=== PATIENT | male | born 1985 | race Caucasian/White ===

== ENCOUNTER 2022-12-28 19:39 | Emergency (ER) | payer OTHER ==
[2022-12-28 19:54] VITALS: BP 136/87; PULSE 75; RESP 16; TEMP 98.6
--- NOTE | 2022-12-28 20:29 | ED ---
Skin/Abscess/FB HPI - General Chief complaint: Skin/Abscess/Foreign Body Stated complaint: redness on face Time Seen by Provider: 12/28/22 20:07 Source: patient Mode of arrival: ambulatory Limitations: no limitations - History of Present Illness Initial comments: 37-year-old male presenting with chief complaint of rash to the face. Patient has had a red and crusting rash on the right side of the chin ongoing for 3 days. He was seen at urgent care but he was not able to get the topical antibiotic prescribed him as he could not afford it. He is concerned about a rash in size. No fevers or chills. No chest pain, difficulty breathing, difficulty swallowing, nausea, vomiting. No URI like symptoms. - Related Data Previous Rx's Medication Instructions Recorded Cephalexin [Keflex] 500 mg PO Q6HR 10 Days #40 cap 12/28/22 Allergies Allergy/AdvReac Type Severity Reaction Status Date / Time No Known Allergies Allergy Verified 12/28/22 19:50 Review of Systems ROS Statement: Those systems with pertinent positive or pertinent negative responses have been documented in the HPI. ROS Other: All systems not noted in ROS Statement are negative. Past Medical History Past Medical History: No Reported History History of Any Multi-Drug Resistant Organisms: None Reported Additional Past Surgical History / Comment(s): tail bone , oral Past Psychological History: Bipolar Smoking Status: Never smoker Past Alcohol Use History: Rare Past Drug Use History: None Reported General Exam Limitations: no limitations General appearance: alert, in no apparent distress Head exam: Present: atraumatic, normocephalic, normal inspection Eye exam: Present: normal appearance, EOMI ENT exam: Present: normal oropharynx, mucous membranes moist Neck exam: Present: normal inspection, full ROM Respiratory exam: Present: normal lung sounds bilaterally. Absent: respiratory distress, wheezes, rales, rhonchi, stridor Cardiovascular Exam: Present: regular rate, normal rhythm, normal heart sounds. Absent: systolic murmur, diastolic murmur, rubs, gallop, clicks Neurological exam: Present: alert, oriented X3, CN II-XII intact Psychiatric exam: Present: normal affect, normal mood Skin exam: Present: rash (Vesicles with red and honey-colored crusting present on the right side of the chin) Course Vital Signs 12/28/22 19:51 Temperature 98.6 F Pulse Rate 75 Respiratory 16 Rate Blood Pressure 136/87 O2 Sat by Pulse 98 Oximetry Medical Decision Making - Medical Decision Making Was pt. sent in by a medical professional or institution (YADIRA Wallace, INFRASTRUCTURE DESIGN ENGINEER, urgent care, hospital, or fdc...) When possible be specific @ -No Did you speak to anyone other than the patient for history (EMS, parent, family, police, friend...)? What history was obtained from this source @ -No Did you review nursing and triage notes (agree or disagree)? Why? @ -I reviewed and agree with nursing and triage notes Were old charts reviewed (outside hosp., previous admission, EMS record, old EKG, old radiological studies, urgent care reports/EKG's, fdc records)? Report findings @ -No old charts were reviewed Differential Diagnosis (chest pain, altered mental status, abdominal pain women, abdominal pain men, vaginal bleeding, weakness, fever, dyspnea, syncope, headache, dizziness, GI bleed, back pain, seizure, CVA, palpatations, mental health, musculoskeletal)? @ -Differential includes cellulitis, abscess, ALLERGIC reaction, impetigo, this is not an all inclusive list EKG interpreted by me (3pts min.). @ -As above X-rays interpreted by me (1pt min.). @ -None done CT interpreted by me (1pt min.). @ -None done U/S interpreted by me (1pt. min.). @ -None done What testing was considered but not performed or refused? (CT, X-rays, U/S, labs)? Why? @ -None What meds were considered but not given or refused? Why? @ -None Did you discuss the management of the patient with other professionals (professionals i.e. YADIRA Wallace, INFRASTRUCTURE DESIGN ENGINEER, lab, RT, psych nurse, bilingual social worker, chief building inspector, teacher, risk control officer, patient case coordinator)? Give summary @ -No Was smoking cessation discussed for >3mins.? @ -No Was critical care preformed (if so, how long)? @ -No Were there social determinants of health that impacted care today? How? (Homelessness, low income, unemployed, alcoholism, drug addiction, transportation, low edu. Level, literacy, decrease access to med. care, custodial, rehab)? @ -No Was there de-escalation of care discussed even if they declined (Discuss DNR or withdrawal of care, Hospice)? DNR status @ -No What co-morbidities impacted this encounter? (DM, HTN, Smoking, COPD, CAD, Cancer, CVA, ARF, Chemo, Hep., AIDS, mental health diagnosis, sleep apnea, morbid obesity)? @ -None Was patient admitted / discharged? Hospital course, mention meds given and route , prescriptions, significant lab abnormalities, going to OR and other pertinent info. @ -37-year-old male presenting with chief complaint of rash started 3 days ago. States he was seen in urgent care was prescribed a topical antibiotic but was unable to afford it. On physical examination vesicles and crusting consistent with impetigo were seen on the right side of the chin. Patient is given topical mupirocin here in the ER, he is also prescribed a course of Keflex. Follow-up with PCP. Report back to ER with any new or worsening symptoms. Discussed ret urn parameters and answered all questions. Patient conveyed verbal understanding and agreed to the plan. I discussed this case in detail with my attending Dr. Castro Undiagnosed new problem with uncertain prognosis? @ -No Drug Therapy requiring intensive monitoring for toxicity (Heparin, Nitro, Insulin, Cardizem)? @ -No Were any procedures done? @ -No Diagnosis/symptom? @ -Impetigo Acute, or Chronic, or Acute on Chronic? @ -acute Uncomplicated (without systemic symptoms) or Complicated (systemic symptoms)? @ -Uncomplicated Side effects of treatment? @ -No Exacerbation, Progression, or Severe Exacerbation? @ -No Poses a threat to life or bodily function? How? (Chest pain, [place], [place], pneumonia, PE, COPD, DKA, ARF, appy, cholecystitis, CVA, Diverticulitis, Homicidal, Suicidal, threat to staff... and all critical care pts) @ -No Disposition Clinical Impression: Impetigo Disposition: HOME SELF-CARE Condition: Good Instructions (If sedation given, give patient instructions): Impetigo (ED) Additional Instructions: Follow-up with PCP. Report back to ER with any new or worsening symptoms. Apply antibiotic ointment 3 times daily for 5 days. Take medication as prescribed. Prescriptions: Cephalexin [Keflex] 500 mg PO Q6HR 10 Days #40 cap Is patient prescribed a controlled substance at d/c from ED?: No Referrals: Sonia Sandhu, PAC [Family Provider] - 1-2 days Time of Disposition: 20:29
[2022-12-28] MEDS ORDERED: MUPIROCIN 2% OINT 22 GM TUBE TOPICAL SCH (22:00)
== END 2022-12-28 20:43 | disposition home or self-care (01) ==
LOC: EC 19:39
DX: L01.00 Impetigo, unspecified (principal); Z86.59 Personal history of other mental and behavioral disorders
CPT/HCPCS: 99282

== ENCOUNTER 2023-02-25 21:24 | Emergency (ER) | payer OTHER ==
[2023-02-25 21:53] VITALS: RESP 18; TEMP 97.8
[2023-02-25] MEDS ORDERED: CEPHALEXIN 500 MG CAP PO STA (22:44)
[2023-02-25] MEDS ORDERED: predniSONE 50 MG TAB PO STA (22:44)
--- NOTE | 2023-02-25 22:44 | ED ---
General Adult HPI - General Chief complaint: Skin/Abscess/Foreign Body Stated complaint: Rash on hand Time Seen by Provider: 02/25/23 22:09 Source: patient, RN notes reviewed Mode of arrival: ambulatory Limitations: no limitations - History of Present Illness Initial comments: 37-year-old male with no significant past medical history presents the emergency department the chief complaint of rash. Patient reports she rash in between the fingers for the past 3 days. He reports he is itchy. He is also complaining of dryness to his genitals. He is not concerned for any STDs at this time. He denies urinary complaints. Patient denies any new lotion soaps or detergents. Patient denies any Hematuria, flank pain, dysuria. - Related Data Previous Rx's Medication Instructions Recorded Cephalexin [Keflex] 500 mg PO Q6HR 10 Days #40 cap 12/28/22 Cephalexin [Keflex] 500 mg PO Q6HR #40 cap 02/25/23 predniSONE 50 mg PO DAILY #5 tab 02/25/23 Allergies Allergy/AdvReac Type Severity Reaction Status Date / Time No Known Allergies Allergy Verified 02/25/23 21:46 Review of Systems ROS Statement: Those systems with pertinent positive or pertinent negative responses have been documented in the HPI. ROS Other: All systems not noted in ROS Statement are negative. Past Medical History Past Medical History: No Reported History History of Any Multi-Drug Resistant Organisms: None Reported Additional Past Surgical History / Comment(s): tail bone , oral Past Psychological History: Bipolar Smoking Status: Never smoker Past Alcohol Use History: Rare Past Drug Use History: Marijuana General Exam - General Exam Comments Initial Comments: General: Alert, in no acute distress Head: atraumatic normocephalic. Eyes PERRL, EOMI intact, mucous membranes moist Respiratory: Lungs clear to auscultation bilaterally Cardiovascular: Regular rate and rhythm Abdominal: Soft without guarding or rebound Extremities: Normal inspection with full range of motion and normal capillary refill, small tapioca like rash to 2nd and 3rd digits. Neuroogic: alert and oriented 3, CN II-XII intact, able to ambulate with steady gait Skin: warm dry and intact with normal color, penis without any marked rashes or lesions. Limitations: no limitations Course Vital Signs 02/25/23 02/25/23 21:44 23:15 Temperature 97.8 F Pulse Rate 67 77 Respiratory 18 18 Rate Blood Pressure 121/70 112/63 O2 Sat by Pulse 98 98 Oximetry - Reevaluation(s) Reevaluation #1: 02/25/23 22:33 initial history and physical exam performed. Patient offered prophylactic STD. However he refused. Medical Decision Making - Medical Decision Making Was pt. sent in by a medical professional or institution (, YADIRA, WET MACHINE OPERATOR, urgent care, hospital, or fdc...) When possible be specific @ -[No] Did you speak to anyone other than the patient for history (EMS, parent, family, police, friend...)? What history was obtained from this source @ -[No] Did you review nursing and triage notes (agree or disagree)? Why? @ -[I reviewed and agree with nursing and triage notes] Were old charts reviewed (outside hosp., previous admission, EMS record, old EKG, old radiological studies, urgent care reports/EKG's, fdc records)? Report findings @ -[No old charts were reviewed] Differential Diagnosis (chest pain, altered mental status, abdominal pain women, abdominal pain men, vaginal bleeding, weakness, fever, dyspnea, syncope, headache, dizziness, GI bleed, back pain, seizure, CVA, palpatations, mental health, musculoskeletal)? @ -[not applicable] EKG interpreted by me (3pts min.). @ -[As above] X-rays interpreted by me (1pt min.). @ -[None done] CT interpreted by me (1pt min.). @ -[None done] U/S interpreted by me (1pt. min.). @ -[None done] What testing was considered but not performed or refused? (CT, X-rays, U/S, labs)? Why? @ -[None] What meds were considered but not given or refused? Why? @ -[None] Did you discuss the management of the patient with other professionals (professionals i.e. YADIRA Wallace, WET MACHINE OPERATOR, lab, RT, psych nurse, social media campaign manager, mobile electronics installer, teacher, community service officer coordinator, case management director)? Give summary @ -[No] Was smoking cessation discussed for >3mins.? @ -[No] Was critical care preformed (if so, how long)? @ -[No] Were there social determinants of health that impacted care today? How? (Homelessness, low income, unemployed, alcoholism, drug addiction, transportation, low edu. Level, literacy, decrease access to med. care, [facility], rehab)? @ -[No] Was there de-escalation of care discussed even if they declined (Discuss DNR or withdrawal of care, Hospice)? DNR status @ -[No] What co-morbidities impacted this encounter? (DM, HTN, Smoking, COPD, CAD, Cancer, CVA, ARF, Chemo, Hep., AIDS, mental health diagnosis, sleep apnea, morbid obesity)? @ -[None] Was patient admitted / discharged? Hospital course, mention meds given and route, prescriptions, significant lab abnormalities, going to OR and other pertinent info. @ -[Discharged. This is a pleasant 37-year-old male who presents the emergency department with rash. Patient had a thorough history and physical exam performed on the ED. Rash in between second and third digits consistent with dyshidrotic eczema. Patient provided steroids and Keflex. Patient discharged in stable condition with strict return precautions. Case discussed with CARLA Beasley who agrees with plan of care Undiagnosed new problem with uncertain prognosis? @ -[No] Drug Therapy requiring intensive monitoring for toxicity (Heparin, Nitro, Insulin, Cardizem)? @ -[No] Were any procedures done? @ -[No] Diagnosis/symptom? @ -Rash Acute, or Chronic, or Acute on Chronic? @ -Acute Uncomplicated (without systemic symptoms) or Complicated (systemic symptoms)? @ -uncomplicated Side effects of treatment? @ -[No] Exacerbation, Progression, or Severe Exacerbation? @ -[No] Poses a threat to life or bodily function? How? (Chest pain, [place], [place], pneumonia, PE, COPD, DKA, ARF, appy, cholecystitis, CVA, Diverticulitis, Homicidal, Suicidal, threat to staff... and all critical care pts) @ -Low likelihood Disposition Clinical Impression: Rash Disposition: HOME SELF-CARE Condition: Stable Instructions (If sedation given, give patient instructions): Contact Dermatitis (ED), Eczema (ED), Dyshidrotic Eczema (ED) Prescriptions: Cephalexin [Keflex] 500 mg PO Q6HR #40 cap predniSONE 50 mg PO DAILY #5 tab Is patient prescribed a controlled substance at d/c from ED?: No Referrals: Edson,Sonia, PAC [Family Provider] - 1-2 days Time of Disposition: 22:43
[2023-02-25 23:18] VITALS: BP 112/63; PULSE 77
== END 2023-02-25 23:16 | disposition home or self-care (01) ==
LOC: EC 21:24
DX: R21 Rash and other nonspecific skin eruption (principal); F12.90 Cannabis use, unspecified, uncomplicated; Z86.59 Personal history of other mental and behavioral disorders
CPT/HCPCS: 99282; J7512

== ENCOUNTER 2023-12-18 23:46 | Emergency (ER) | payer OTHER ==
[2023-12-18 23:51] VITALS: RESP 18; TEMP 98.4
[2023-12-19] MEDS: ONDANSETRON 4 MG/2 ML VIAL IVP STA (00:39)
[2023-12-19] MEDS: KETOROLAC 15 MG/ML 1 ML VIAL IVP STA (00:39)
[2023-12-19] MEDS: SODIUM CHLORIDE 0.9% 1,000 ML IV STA (00:40)
[2023-12-19 00:51] LABS: Basophils # (A) 0.1 k/uL (0-0.2); Basophils % (A) 1 %; Eosinophils # (A) 0.1 k/uL (0-0.7); Eosinophils % (A) 2 %; HCT 43.1 % (39.0-53.0); HGB 14.6 gm/dL (13.0-17.5); Lymphocytes # (A) 1.4 k/uL (1.0-4.8); Lymphocytes % (A) 24 %; MCH 32.9 pg (25.0-35.0); MCHC 33.9 g/dL (31.0-37.0); MCV 97.1 fL (80.0-100.0); Mean Platelet Volume 7.3; Monocytes # (A) 0.4 k/uL (0-1.0); Monocytes % (A) 7 %; Neutrophils # (A) 3.5 k/uL (1.3-7.7); Neutrophils % (A) 64 %; Platelet Count 309 k/uL (150-450); RBC 4.44 m/uL (4.30-5.90); RDW 11.8 % (11.5-15.5); WBC 5.6 k/uL (3.8-10.6)
[2023-12-19 01:02] LABS: ALT 34 U/L (4-49); AST 32 U/L (17-59); African American GFR (CKD) 89 (>60 ml/min/1.73 sqM); Albumin 4.8 g/dL (3.5-5.0); Alkaline Phosphatase 67 U/L (38-126); Amylase 45 U/L (30-110); Anion Gap 8 mmol/L; Blood Urea Nitrogen 14 mg/dL (9-20); Calcium 9.8 mg/dL (8.4-10.2); Carbon Dioxide 26 mmol/L (22-30); Chloride 102 mmol/L (98-107); Glucose 109 mg/dL (74-99); Lipase 66 U/L (23-300); Non-African American GFR(CKD) 77 (>60 ml/min/1.73 sqM); Potassium 4.1 mmol/L (3.5-5.1); Sodium 136 mmol/L (137-145); Total Bilirubin 0.7 mg/dL (0.2-1.3); Total Protein 7.1 g/dL (6.3-8.2)
--- NOTE | 2023-12-19 01:35 | ED ---
Abdominal Pain HPI - General Chief Complaint: Abdominal Pain Stated Complaint: abd pain Time Seen by Provider: 12/19/23 01:34 Source: patient, RN notes reviewed Mode of arrival: ambulatory Limitations: no limitations - History of Present Illness Initial Comments: 38-year-old male presented to the ER with a chief complaint of right upper quadrant abdominal pain. He states this has been ongoing and he has received outpatient follow-up. He states he had a HIDA scan which is concerning of biliary colic. Patient has yet to follow-up with a general surgeon for cholecystectomy. He states this evening pain has been sharp with radiation to his back. He states he has smoked marijuana and tried conservative measures without relief. He reports mild nausea denies vomiting. Denies any constipation/diarrhea. He presents to the ER today for concern of worsening gallbladder issues. He denies any fevers, chills, urinary complaints, chest pain, shortness of breath or peripheral edema. - Related Data Previous Rx's Medication Instructions Recorded Cephalexin [Keflex] 500 mg PO Q6HR 10 Days #40 cap 12/28/22 Cephalexin [Keflex] 500 mg PO Q6HR #40 cap 02/25/23 predniSONE 50 mg PO DAILY #5 tab 02/25/23 Allergies Allergy/AdvReac Type Severity Reaction Status Date / Time No Known Allergies Allergy Verified 12/18/23 23:51 Review of Systems ROS Statement: Those systems with pertinent positive or pertinent negative responses have been documented in the HPI. ROS Other: All systems not noted in ROS Statement are negative. Past Medical History Past Medical History: No Reported History History of Any Multi-Drug Resistant Organisms: None Reported Additional Past Surgical History / Comment(s): tail bone , oral Past Psychological History: Bipolar Smoking Status: Never smoker Past Alcohol Use History: Rare Past Drug Use History: Marijuana General Exam Limitations: no limitations General appearance: alert, in no apparent distress Respiratory exam: Present: normal lung sounds bilaterally. Absent: respiratory distress, wheezes, rales, rhonchi, stridor Cardiovascular Exam: Present: regular rate, normal rhythm, normal heart sounds. Absent: systolic murmur, diastolic murmur, rubs, gallop, clicks GI/Abdominal exam: Present: soft, tenderness (Right upper quadrant), normal bowel sounds Neurological exam: Present: alert, oriented X3, CN II-XII intact Skin exam: Present: warm, dry, intact, normal color. Absent: rash Course Vital Signs 12/18/23 12/19/23 23:48 01:42 Temperature 98.4 F Pulse Rate 66 76 Respiratory 18 18 Rate Blood Pressure 121/77 124/78 O2 Sat by Pulse 99 98 Oximetry Medical Decision Making - Medical Decision Making Was pt. sent in by a medical professional or institution (, YADIRA, PHYSICAL ANTHROPOLOGIST, urgent care, hospital, or penitentiary...) When possible be specific @ -No Did you speak to anyone other than the patient for history (EMS, parent, family, police, friend...)? What history was obtained from this source @ -No Did you review nursing and triage notes (agree or disagree)? Why? @ -I reviewed and agree with nursing and triage notes Were old charts reviewed (outside hosp., previous admission, EMS record, old EKG, old radiological studies, urgent care reports/EKG's, penitentiary records)? Report findings @ -No old charts were reviewed Differential Diagnosis (chest pain, altered mental status, abdominal pain women, abdominal pain men, vaginal bleeding, weakness, fever, dyspnea, syncope, headache, dizziness, GI bleed, back pain, seizure, CVA, palpatations, mental health, musculoskeletal)? @ -Differential Abdominal Pain Men:Appendicitis, cholecystitis, diverticulosis, ischemic bowel, pancreatitis, hepatitis, UTI, gastroenteritis, AAA, incarcerated hernia, bowel obstruction, constipation, inflammatory bowel, hepatitis, peptic ulcer disease, splenic infarction, perforated viscus, testicular torsion, this is not meant to be an all-inclusive list EKG interpreted by me (3pts min.). @ -None X-rays interpreted by me (1pt min.). @ -None done CT interpreted by me (1pt min.). @ -None done U/S interpreted by me (1pt. min.). @ -Gallbladder ultrasound negative for acute process. What testing was considered but not performed or refused? (CT, X-rays, U/S, labs)? Why? @ -None What meds were considered but not given or refused? Why? @ -None Did you discuss the management of the patient with other professionals (professionals i.e. , YADIRA, PHYSICAL ANTHROPOLOGIST, lab, RT, psych nurse, social studies teacher, rn military, teacher, sports development officer, director of casework services)? Give summary @ -No Was smoking cessation discussed for >3mins.? @ -No Was critical care preformed (if so, how long)? @ -No Were there social determinants of health that impacted care today? How? (Homelessness, low income, unemployed, alcoholism, drug addiction, transportation, low edu. Level, literacy, decrease access to med. care, [facility], rehab)? @ -No Was there de-escalation of care discussed even if they declined (Discuss DNR or withdrawal of care, Hospice)? DNR status @ -No What co-morbidities impacted this encounter? (DM, HTN, Smoking, COPD, CAD, Cancer, CVA, ARF, Chemo, Hep., AIDS, mental health diagnosis, sleep apnea, morbid obesity)? @ -None Was patient admitted / discharged? Hospital course, mention meds given and route, prescriptions, significant lab abnormalities, going to OR and other pertinent info. @ -Discharge. 38-year-old male presented to the ER with a chief complaint of right upper quadrant abdominal pain. History and physical exam completed. Vitals stable. Patient in no signs of acute distress and resting comfortably in exam room. Exam remarkable for exquisite right upper quadrant abdominal pain. Normal bowel sounds. No rebound or guarding. Laboratory studies obtained unr emarkable. Gallbladder ultrasound negative for acute process. Patient received symptomatic treatment in the ER. Upon reevaluation, patient resting comfortably in exam room and sleeping. No signs of acute distress. Results discussed with patient, all questions answered. Advised close follow-up with PCP and general surgeon, referral given. Return parameters discussed. Patient discharged in stable condition. Patient verbally expressed understanding and agreed with care plan. Case discussed with ED attending, Dr. Lopez. Undiagnosed new problem with uncertain prognosis? @ -No Drug Therapy requiring intensive monitoring for toxicity (Heparin, Nitro, Insulin, Cardizem)? @ -No Were any procedures done? @ -No Diagnosis/symptom? @ -Abdominal pain Acute, or Chronic, or Acute on Chronic? @ -Acute Uncomplicated (without systemic symptoms) or Complicated (systemic symptoms)? @ -Uncomplicated Side effects of treatment? @ -No Exacerbation, Progression, or Severe Exacerbation? @ -No Poses a threat to life or bodily function? How? (Chest pain, [place], [place], pneumonia, PE, COPD, DKA, ARF, appy, cholecystitis, CVA, Diverticulitis, Homicidal, Suicidal, threat to staff... and all critical care pts) @ -No - Lab Data Result diagrams: 12/19/23 00:40 12/19/23 00:40 Lab Results 12/19/23 12/19/23 12/19/23 Range/Units 00:40 00:40 00:40 WBC 5.6 (3.8-10.6) k/uL RBC 4.44 (4.30-5.90) m/uL Hgb 14.6 (13.0-17.5) gm/dL Hct 43.1 (39.0-53.0) % MCV 97.1 (80.0-100.0) fL MCH 32.9 (25.0-35.0) pg MCHC 33.9 (31.0-37.0) g/dL RDW 11.8 (11.5-15.5) % Plt Count 309 (150-450) k/uL MPV 7.3 Neutrophils % 64 % Lymphocytes % 24 % Monocytes % 7 % Eosinophils % 2 % Basophils % 1 % Neutrophils # 3.5 (1.3-7.7) k/uL Lymphocytes # 1.4 (1.0-4.8) k/uL Monocytes # 0.4 (0-1.0) k/uL Eosinophils # 0.1 (0-0.7) k/uL Basophils # 0.1 (0-0.2) k/uL Sodium 136 L (137-145) mmol/L Potassium 4.1 (3.5-5.1) mmol/L Chloride 102 (98-107) mmol/L Carbon Dioxide 26 (22-30) mmol/L Anion Gap 8 mmol/L BUN 14 (9-20) mg/dL Creatinine 1.21 (0.66-1.25) mg/dL Est GFR (CKD-EPI)AfAm 89 (>60 ml/min/1.73 sqM) Est GFR (CKD-EPI)NonAf 77 (>60 ml/min/1.73 sqM) Glucose 109 H (74-99) mg/dL Plasma Lactic Acid Claude 0.6 L (0.7-2.0) mmol/L Calcium 9.8 (8.4-10.2) mg/dL Total Bilirubin 0.7 (0.2-1.3) mg/dL AST 32 (17-59) U/L ALT 34 (4-49) U/L Alkaline Phosphatase 67 (38-126) U/L Total Protein 7.1 (6.3-8.2) g/dL Albumin 4.8 (3.5-5.0) g/dL Amylase 45 (30-110) U/L Lipase 66 (23-300) U/L - Radiology Data Radiology results: report reviewed, image reviewed Disposition Clinical Impression: Abdominal pain Disposition: HOME SELF-CARE Condition: Stable Instructions (If sedation given, give patient instructions): Abdominal Pain (ED) Additional Instructions: Please follow-up with general surgeon. Return to the ER for any new or worsening concerns. Is patient prescribed a controlled substance at d/c from ED?: No Referrals: Yan Ramírez MD [Primary Care Provider] - 1-2 days Jone Hardy MD [STAFF PHYSICIAN] - 1-2 days Time of Disposition: 02:30
--- NOTE | 2023-12-19 02:16 | US ---
EXAM: US Abdomen Limited, Gallbladder CLINICAL HISTORY: ITS.REASON US Reason: RUQ abd pain TECHNIQUE: Real-time ultrasound of the right upper quadrant with image documentation. COMPARISON: No relevant prior studies available. FINDINGS: Gallbladder: Unremarkable. No gallstones. Common bile duct: Unremarkable as visualized. No dilation. Right kidney: 9.1 cm. No hydronephrosis. Liver: Echogenic parenchyma. Liver measures 16.1 cm. IMPRESSION: 1. No cholelithiasis, cholecystitis, or biliary dilatation. 2. Echogenic liver suggesting steatosis.
[2023-12-19 02:44] VITALS: BP 116/76; PULSE 70
== END 2023-12-19 03:00 | disposition home or self-care (01) ==
LOC: EC 23:46
DX: R10.11 Right upper quadrant pain (principal)
CPT/HCPCS: 36415; 80053; 82150; 83605; 83690; 85025; 76705; 99284; 96374; 96375; 96361; J2405; J1885

== ENCOUNTER 2024-04-15 08:57 | Day surgery (SDC) | payer OTHER ==
[2024-04-12 14:18] VITALS: BMI 29.7
[~2024-04-15 08:57] MED LIST: LIDOCAINE 1% (10MG/ML) FOR IV START INTRADERMA PRN
[2024-04-15] MEDS: IV FLUID CONTINUATION 1,000 ML IV ONE (09:15)
[2024-04-15] MEDS: LACTATED RINGERS 1,000 ML IV SCH (09:26)
[2024-04-15 09:30] LABS: Glucose,Whole Blood 104 mg/dL (70-110)
[2024-04-15] MEDS ORDERED: PROPOFOL 10 MG/ML 20 ML VIAL IV ONE (10:00)
[2024-04-15] MEDS ORDERED: fentaNYL (PF) 50 MCG/ML 2 ML AMP ONE (10:00)
[2024-04-15] MEDS ORDERED: LIDOCAINE 2% (PF) 20 MG/ML 5 ML VIAL ONE (10:00)
--- NOTE | 2024-04-15 10:02 | P.GSHP ---
History of Present Illness H&P Date: 04/15/24 Chief Complaint: Right upper quadrant pain, nausea This a 38-year-old male presents today for EGD. Patient complains of right upper quadrant pain and nausea. His recent ultrasound is normal without gallstones. However his HIDA scan shows a diminished ejection fraction. Past Medical History Past Medical History: No Reported History Additional Past Medical History / Comment(s): intermittent nausea/vomiting,abd pain, suspecting "a gallbladder issue",recent [place] scan-"gallbladder partially functioning",freq diarrhea,difficulty urinating,anxiety causes heart palpitations,hypoglycemic History of Any Multi-Drug Resistant Organisms: None Reported Additional Past Surgical History / Comment(s): pilonidal cyst , oral Past Anesthesia/Blood Transfusion Reactions: No Reported Reaction Additional Past Anesthesia/Blood Transfusion Reaction / Comment(s): afraid of needles Smoking Status: Never smoker - Past Family History Mother Family Medical History: Thyroid Disorder Medications and Allergies Home Medications Medication Instructions Recorded Confirmed Type [place] Carbonate [[place] 600 mg PO BID 04/12/24 04/15/24 History Carbonate ER] Propranolol HCl 20 mg PO BID 04/12/24 04/15/24 History Allergies Allergy/AdvReac Type Severity Reaction Status Date / Time aripiprazole [From Abilify] Allergy Rapid Verified 04/15/24 09:15 Heart Rate,breathing problems atomoxetine [From Strattera] Allergy Anaphylaxis Verified 04/15/24 09:15 bupropion [From Wellbutrin] Allergy seizures Verified 04/15/24 09:15 cariprazine [From Vraylar] Allergy manic Verified 04/15/24 09:15 behavior cyclobenzaprine Allergy unable to Verified 04/15/24 09:15 function divalproex sodium Allergy unable to Verified 04/15/24 09:15 [From Depakote] function gabapentin Allergy passed out Verified 04/15/24 09:15 olanzapine [From Zyprexa] Allergy suicidal Verified 04/15/24 09:15 behavior paliperidone [From Invega] Allergy tremors Verified 04/15/24 09:15 risperidone [From Risperdal] Allergy passed out Verified 04/15/24 09:15 sertraline [From Zoloft] Allergy psychosis Verified 04/15/24 09:15 ziprasidone [From Geodon] Allergy tremors Verified 04/15/24 09:15 Surgical - Exam Vital Signs Pulse Resp BP Pulse Ox 56 L 16 124/59 99 04/15/24 09:18 04/15/24 09:18 04/15/24 09:18 04/15/24 09:18 - General well developed, well nourished, no distress - Eyes PERRL - ENT normal pinna - Neck no masses - Respiratory normal expansion - Cardiovascular Rhythm: regular - Abdomen Abdomen: soft, non tender Assessment and Plan Assessment: Right upper quadrant pain, nausea. Will perform EGD.
--- NOTE | 2024-04-15 10:10 | P.OP ---
Date of Procedure: 04/15/24 Preoperative Diagnosis: Nausea Right upper quadrant pain Postoperative Diagnosis: Antral gastritis Procedure(s) Performed: EGD Anesthesia: MAC Surgeon: Jone Hardy Pathology: other (Antrum) Condition: stable Disposition: PACU Description of Procedure: The patient was placed on the endoscopy table in the lateral position. He received IV sedation. The gas was placed oropharynx passed in the esophagus and the stomach. Scope was placed through the pylorus. The first and second portion of the duodenum appeared normal. The scope was then brought back to the antrum this appeared mildly Flaim. A biopsy is performed. The scope was then retroflexed and the Mainer of the stomach appeared normal. The GE junction was at 40 cm. The distal esophagus appeared no. The proximal Soffix appeared normal scope withdrawn for the patient.
[2024-04-15 10:32] VITALS: BP 97/59; PULSE 70; RESP 16
== END 2024-04-15 10:57 | disposition home or self-care (01) ==
LOC: ORWHC2ENDO 08:57
PROVIDERS: ATTEND Surgery
DX: K29.50 Unspecified chronic gastritis without bleeding (principal); F41.9 Anxiety disorder, unspecified; F43.10 Post-traumatic stress disorder, unspecified; F90.9 Attention-deficit hyperactivity disorder, unspecified type; R00.0 Tachycardia, unspecified; Z83.49 Family history of other endocrine, nutritional and metabolic diseases; Z88.8 Allergy status to other drugs, medicaments and biological substances; Z79.899 Other long term (current) drug therapy
CPT/HCPCS: 88305; 43239; J3010; J2704; J2003

== ENCOUNTER 2024-05-08 08:11 | Day surgery (SDC) | payer OTHER ==
[2024-05-07 09:22] VITALS: BMI 31.1
[~2024-05-08 08:11] MED LIST changes: +HYDROmorphone 0.5 MG/0.5 ML SYRINGE IVP PRN; -LIDOCAINE 1% (10MG/ML) FOR IV START INTRADERMA PRN
[2024-05-08] MEDS: IV FLUID CONTINUATION 1,000 ML IV ONE (08:45)
[2024-05-08 09:02] LABS: Glucose,Whole Blood 105 mg/dL (70-110)
[2024-05-08] MEDS: ACETAMINOPHEN TAB 500 MG TAB PO PRN (09:04)
[2024-05-08] MEDS: HEPARIN SODIUM,PORCINE 5,000 UNIT/ML 1 ML VIAL SQ PRN (09:04)
[2024-05-08] MEDS: LACTATED RINGERS 1,000 ML IV SCH (09:04)
[2024-05-08] MEDS: DEXAMETHASONE SOD PHOSPHATE 4 MG/ML 1 ML VIAL IV ONE (09:04)
[2024-05-08] MEDS: ONDANSETRON 4 MG/2 ML VIAL IVP ONE (09:04)
[2024-05-08] MEDS ORDERED: MIDAZOLAM 2 MG/2 ML VIAL ONE (09:18)
[2024-05-08] MEDS ORDERED: SUCCINYLCHOLINE CHLORIDE 200 MG/10 ML VIAL IV ONE (09:18)
[2024-05-08] MEDS ORDERED: PROPOFOL 10 MG/ML 20 ML VIAL IV ONE (09:18)
[2024-05-08] MEDS ORDERED: fentaNYL (PF) 50 MCG/ML 2 ML AMP ONE (09:18)
[2024-05-08] MEDS ORDERED: GLYCOPYRROLATE 0.2 MG/ML 2 ML VIAL ONE (09:18)
[2024-05-08] MEDS ORDERED: NEOSTIGMINE 1 MG/ML 10 ML VIAL ONE (09:18)
[2024-05-08] MEDS ORDERED: KETOROLAC 15 MG/ML 1 ML VIAL ONE (09:18)
[2024-05-08] MEDS ORDERED: diphenhydrAMINE 50 MG/ML 1 ML VIAL ONE (09:18)
[2024-05-08] MEDS ORDERED: LIDOCAINE 4% LTA KIT (4 ML) TOPICAL ONE (09:18)
[2024-05-08] MEDS ORDERED: ROCURONIUM 10 MG/ML (5 ML VIAL) IV ONE (09:18)
[2024-05-08] MEDS ORDERED: HYDROmorphone (PF) 1 MG/ML ONE (09:18)
[2024-05-08] MEDS ORDERED: LIDOCAINE 1% INJ 10MG/ML (20 ML MDV) ONE (09:18)
[2024-05-08] MEDS: LIDOCAINE 1%-EPI 1:100,000 20 ML VIAL SQ ONE (09:42)
--- NOTE | 2024-05-08 10:05 | P.OP ---
Date of Procedure: 05/08/24 Preoperative Diagnosis: Cholecystitis Postoperative Diagnosis: Cholecystitis Procedure(s) Performed: Laparoscopic cholecystectomy Anesthesia: KAREN Surgeon: Jone Hardy Estimated Blood Loss (ml): 5 Pathology: other (Gallbladder) Condition: stable Disposition: PACU Description of Procedure: The patient was placed on the operating table. The patient received a general endotracheal tube anesthesia. The patients abdomen was prepped and draped in the usual sterile fashion. Through an infraumbilical stab incision, the fascia of the anterior abdominal wall was grasped with a pair of Kochers and then the Veress needle was placed in the peritoneal cavity. Position of the Veress needle was confirmed with positive drop test. The abdomen was then insufflated. After adequate insufflation, the 10 mm trocar was placed in the peritoneal cavity. Following this the laparoscope was placed in the peritoneal cavity. The patient was placed in the head-up, right side up position and then a 5 mm trocar was placed in the right lateral and right subcostal position under direct visualization. A 8 mm trocar was placed in the epigastric position. The gallbladder was grasped in the fundus and infundibulum. Traction on the gallbladder was placed in the lateral and the cephalad positions. The triangle of Calot was visualized.. The cystic duct was bluntly dissected until the union of the cystic duct and common bile duct was seen. A critical view of safety was achieved. The cystic duct was then divided and sealed with the Harmonic scissors. A PDS Endoloop was then placed throughout the cystic duct stump. The cystic artery divided and sealed with the Harmonic scissors. The gallbladder was then removed from the liver bed using Harmonic scissors. The gallbladder was then extracted through the epigastric port site. Operative field was checked for any bleeding spots and Harmonic scissors was used to coagulate the liver bed. The abdomen was irrigated. The trocars were removed. The skin was closed using interrupted 3-0 Vicryl suture. Dermabond dressing were applied. The patient tolerated the procedure well.
[2024-05-08 10:16] VITALS: TEMP 97
[2024-05-08 10:32] VITALS: RESP 16
[2024-05-08] MEDS: LACTATED RINGERS 1,000 ML IV ONE (11:52)
[2024-05-08 12:41] VITALS: BP 115/66; PULSE 56
== END 2024-05-08 13:29 | disposition home or self-care (01) ==
LOC: OR 08:11
PROVIDERS: ATTEND Surgery
DX: K81.1 Chronic cholecystitis (principal); K82.8 Other specified diseases of gallbladder; F41.9 Anxiety disorder, unspecified; F43.10 Post-traumatic stress disorder, unspecified; F90.9 Attention-deficit hyperactivity disorder, unspecified type; Z79.899 Other long term (current) drug therapy; Z88.5 Allergy status to narcotic agent; Z88.8 Allergy status to other drugs, medicaments and biological substances
CPT/HCPCS: 47562; 88304; J2250; J0330; J1200; J1644; J1100; J2710; J0690; J2405; J2003; J3010; J1171; J1885; J2704; J1596